=== PATIENT | female | born 1965 | race Caucasian/White ===

== ENCOUNTER 2017-11-06 16:38 | Inpatient (IN) | payer OTHER ==
[2017-11-06 17:44] LABS: Absolute Monocytes 0.5 K/uL (0.1-1.3); Hematocrit 40.1 % (36.0-45.0); MCH 28.4 pg (27.0-35.0); MPV 8.4 fL (7.6-11.3); RBC Red Blood Cell Count 4.76 M/uL (3.86-4.86)
[2017-11-06 17:48] LABS: Absolute Lymphocytes (CBC) 1.8 K/uL (0.7-4.9); Absolute Neutrophil 3.6 K/uL (1.8-8.0); Basophils % 1.2 % (0-1.3); Eosinophils % 1.8 % (0-4.4); Lymphocytes % 29.7 % (15.3-44.8); MCV 84.4 fL (80-100); Monocytes % 8.5 % (3.3-12.3)
[2017-11-06 17:53] LABS: Bicarbonate 27 mEq/L (21-31); Glucose Level 119 mg/dL (65-120); Potassium 3.4 mEq/L (3.6-5.0); Sodium Level 140 mEq/L (135-145)
[2017-11-06 17:54] LABS: BUN Blood Urea Nitrogen 7 mg/dL (6-20)
--- NOTE | 2017-11-06 17:56 | RAD REPORT ---
EXAM DESCRIPTION: CT - Head Brain Wo Cont - 11/06/2017 5:42 pm CLINICAL HISTORY: Left-sided retro-orbital headache, visual field disturbance COMPARISON: None. TECHNIQUE: Axial 5 mm thick images of the head were obtained without IV contrast. All CT scans are performed using dose optimization technique as appropriate and may include automated exposure control or mA/KV adjustment according to patient size. FINDINGS: No intracranial hemorrhage, mass, edema or shift of mid-line structures. No acute cortical based infarction identified. No cortical edema or sulcal effacement. No abnormal extra-axial fluid c ollections. Ventricles are normal. Physiologic calcifications are present. Mastoid air cells and visualized portions of the paranasal sinuses are clear. No acute bony findings. IMPRESSION: No hemorrhage, mass or edema. No acute infarction changes are identifiable. If there are continued, unexplained visual or neurologic deficits, followup MR imaging could be obtai anabelle for more sensitive assessment.
--- NOTE | 2017-11-06 18:49 | EDPHYS ---
Physician Documentation [facility] Name: Jessi Vang Age: 52 yrs Sex: Female : 1965 Arrival Date: 11/06/2017 Time: 16:41 Bed 25 Private MD: ED Physician Rufus Rouse HPI: 11/06 18:41 This 52 yrs old Female presents to ER via Ambulatory with complaints of gs Vision Problem. 18:41 The patient's problem is reported as visual difficulty, scotomata, decreased visual gs field. Onset: The symptoms/episode began/occurred at 13:00. Duration: This was a single incident. Context: occurred at home, occurred while the patient was driving , looking to right and left. The symptoms are alleviated by nothing. The symptoms are aggravated by nothing. Associated signs and symptoms: Pertinent positives: headache, noticed after visual returned to normal, did not start with headache. Severity of symptoms: At their worst the symptoms were moderate in the emergency department the symptoms have resolved except residual headache. The patient has not experienced similar symptoms in the past. 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 - Social history:: Smoking status: Patient/guardian denies using tobacco. ROS: 18:41 All other systems are negative. gs Exam: 18:41 Head/Face: Normocephalic, atraumatic. Eyes: Pupils equal round and reactive to light, gs extra-ocular motions intact. Lids and lashes normal. Conjunctiva and sclera are non-icteric and not injected. Cornea within normal limits. Periorbital areas with no swelling, redness, or edema. ENT: Nares patent. No nasal discharge, no septal abnormalities noted. Tympanic membranes are normal and external auditory canals are clear. Oropharynx with no redness, swelling, or masses, exudates, or evidence of obstruction, uvula midline. Mucous membranes moist. Neck: Trachea midline, no thyromegaly or masses palpated, and no cervical lymphadenopathy. Supple, full range of motion without nuchal rigidity, or vertebral point tenderness. No Meningismus. Chest/axilla: Normal chest wall appearance and motion. Nontender with no deformity. No lesions are appreciated. Cardiovascular: Regular rate and rhythm with a normal S1 and S2. No gallops, murmurs, or rubs. Normal PMI, no JVD. No pulse deficits. Respiratory: Lungs have equal breath sounds bilaterally, clear to auscultation and percussion. No rales, rhonchi or wheezes noted. No increased work of breathing, no retractions or nasal flaring. Abdomen/GI: Soft, non-tender, with normal bowel sounds. No distension or tympany. No guarding or rebound. No evidence of tenderness throughout. Back: No spinal tenderness. No costovertebral tenderness. Full range of motion. Skin: Warm, dry with normal turgor. Normal color with no rashes, no lesions, and no evidence of cellulitis. MS/ Extremity: Pulses equal, no cyanosis. Neurovascular intact. Full, normal range of motion. Neuro: Awake and alert, GCS 15, oriented to person, place, time, and situation. Cranial nerves II-XII grossly intact. Motor strength 5/5 in all extremities. Sensory grossly intact. Cerebellar exam normal. Normal gait. 18:41 Constitutional: The patient appears alert, awake. 18:49 ECG was reviewed by the Attending Physician. Vital Signs: 16:58 BP 171 / 100; Pulse 78; Resp 16; Temp 98.4; Pulse Ox 100% on R/A; Weight 95.25 kg; hb Height 5 ft. 8 in. (172.72 cm); Pain 8/10; 17:30 BP 153 / 84; Pulse 106; Resp 18; Pulse Ox 100% ; tl3 18:21 BP 156 / 85; Pulse 90; Resp 18; Pulse Ox 97% ; tl3 19:07 BP 154 / 80; Pulse 90; Resp 18; Pulse Ox 100% on R/A; tl3 21:48 BP 153 / 87; Pulse 77; Resp 18; Pulse Ox 99% ; tl3 16:58 Body Mass Index 31.93 (95.25 kg, 172.72 cm) NIH Stroke Scale Scores: 18:41 NIHSS Score: 0 gs MDM: 17:19 Patient medically screened. 18:41 Differential diagnosis: CVA, TIA, metabolic disorder, migraine. Data reviewed: vital gs signs, nurses notes. Response to treatment: the patient's symptoms have resolved after treatment, and as a result, I will admit patient. ED course: no tpa symptoms resolved. 11/06 17:13 Order name: Basic Metabolic Panel; Complete Time: 18:10 11/06 17:13 Order name: CBC with Diff; Complete Time: 18:10 11/06 17:13 Order name: PT-INR; Complete Time: 18:10 11/06 17:13 Order name: XRAY Chest (1 view); Complete Time: 21:20 11/06 17:13 Order name: CT Head Brain wo Cont; Complete Time: 21:20 11/06 21:32 Order name: CT [facility] 11/06 17:13 Order name: EKG; Complete Time: 17:13 11/06 17:13 Order name: Cardiac monitoring; Complete Time: 17:35 11/06 17:13 Order name: EKG - Nurse/Tech; Complete Time: 17:39 11/06 18:54 Order name: CONS Physician Consult [facility] 11/06 21:39 Order name: CT [facility] 11/06 17:13 Order name: IV Saline Lock; Complete Time: 17:35 11/06 17:13 Order name: Labs collected and sent; Complete Time: 17:35 11/06 17:13 Order name: O2 Per Protocol; Complete Time: 17:36 11/06 17:13 Order name: O2 Sat Monitoring; Complete Time: 17:36 gs EC:49 Rate is 77 beats/min. Rhythm is regular. MD interval is normal. QRS interval is normal. gs T waves are Normal. No ST changes noted. Clinical impression: Normal ECG. Interpreted by me. Administered Medications: 19:01 Drug: TORadol 15 mg Route: IVP; Site: right antecubital; tl3 21:00 Follow up: Response: No adverse reaction; Pain is decreased tl3 21:00 Follow up: Response: No adverse reaction; Pain is decreased tl3 19:04 Drug: Benadryl 25 mg Route: IVP; Infused Over: 3 mins; Site: right antecubital; tl3 21:00 Follow up: Response: No adverse reaction; Pain is decreased tl3 19:05 Drug: Reglan 5 mg Route: IVP; Infused Over: 5 mins; Site: right antecubital; tl3 21:00 Follow up: Response: No adverse reaction; Pain is decreased tl3 Disposition: 11/06/17 18:48 Hospitalization ordered by Marquez Cardenas for Observation. Preliminary diagnosis are Transient cerebral ischemic attack, unspecified, Essential (primary) hypertension. - Bed requested for Telemetry/MedSurg (observation). - Status is Observation. tl3 - Condition is Stable. - Problem is new. - Symptoms are resolved. UTI on Admission? No NIH Stroke Scale - NIH Stroke Score Date: 11/06/2017 Time: 18:41 Total Score = 0 1a. Level of Consciousness (LOC) - 0(Alert) 1b. Level of Consciousness (LOC) (Year \T\ Age) - 0(Both) 1c. LOC Commands (Open \T\ Closes Eyes/Sole Stainer) - 0(Both) 2. Best Gaze (Lateral Gaze Paresis) - 0(Normal) 3. Visual Field Loss - 0(No visual loss) 4. Facial Palsy - 0(Normal) 5a. Left Arm: Motor (10-second hold) - 0(No drift) 5b. Right Arm: Motor (10-second hold) - 0(No drift) 6a. Left Leg: Motor (5-second hold - always test supine) - 0(No drift) 6b. Right Leg: Motor (5-second hold - always test supine) - 0(No drift) 7. Limb Ataxia (finger/nose \T\ heel/valente - test with eyes open) - 0(Absent) 8. Sensory Loss (pinprick arms/legs/face) - 0(Normal) 9. Best Language: Aphasia (description/naming/reading) - 0(No aphasia) 10. Dysarthria (speech clarity - read or repeat words) - 0(Normal) 11. Extinction and Inattention (visual/tactile/auditory/spatial/personal) - 0(No abnormality) Initials: Signatures: Dispatcher [employer] Maritza Rivera RN RN dw Nieto, Roman, MD MD rn Baxter, Heather, RN RN hb Starr, Gregory, MD MD gs Lowrey, Tammy, RN RN tl3
--- NOTE | 2017-11-06 18:49 | ER ---
Nurse's Notes [facility] Name: Jessi Vang Age: 52 yrs Sex: Female : 1965 Arrival Date: 11/06/2017 Time: 16:41 Bed 25 Private MD: Diagnosis: Transient cerebral ischemic attack, unspecified;Essential (primary) hypertension Presentation: 11/06 16:53 Presenting complaint: Patient states: Turned to put seat belt on and entire field of hb vision went white, which lasted for approx 5 minutes. Now c/o headache behind left eye, photosensitivity, and vision is "hazy." Distant migraine hx. Transition of care: patient was not received from another setting of care. Onset of symptoms was November 06, 2017 at 13:30. Initial Sepsis Screen: Does the patient meet any 2 criteria? No. Patient's initial sepsis screen is negative. Does the patient have a suspected source of infection? No. Patient's initial sepsis screen is negative. Care prior to arrival: None. 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 - Social history:: Smoking status: Patient/guardian denies using tobacco. Screenin:30 Abuse screen: Denies threats or abuse. Nutritional screening: No deficits noted. tl3 Tuberculosis screening: No symptoms or risk factors identified. Fall Risk None identified. Assessment: 17:30 General: Appears uncomfortable, well groomed, well developed, well nourished, Behavior tl3 is calm, cooperative, appropriate for age. Pain: Complains of pain in headache. Neuro: Level of Consciousness is awake, alert, obeys commands, Oriented to person, place, time, situation, Appropriate for age. Cardiovascular: Heart tones S1 S2 present. Respiratory: Airway is patent Trachea midline Respiratory effort is even, unlabored, Respiratory pattern is regular, symmetrical, Breath sounds are clear bilaterally. GI: No signs and/or symptoms were reported involving the gastrointestinal system. : No signs and/or symptoms were reported regarding the genitourinary system. EENT: No signs and/or symptoms were reported regarding the EENT system. EENT: Reports photophobia in outer aspect of conjuctiva of right eye, iris of right eye, inner aspect of conjuctiva of right eye, outer aspect of conjuctiva of left eye, iris of left eye and inner aspect of conjunctiva of left eye was going to put on seat belt and turned around and had loss of vision, everything was white. Derm: No signs and/or symptoms reported regarding the dermatologic system. Musculoskeletal: No signs and/or symptoms reported regarding the musculoskeletal system. 18:21 Reassessment: Patient appears in no apparent distress at this time. No changes from tl3 previously documented assessment. Patient and/or family updated on plan of care and expected duration. Pain level reassessed. Patient is alert, oriented x 3, equal unlabored respirations, skin warm/dry/pink. pt reports vision is better, resting quietly, lights dimmed. 19:07 Reassessment: Patient appears in no apparent distress at this time. No changes from tl3 previously documented assessment. Patient and/or family updated on plan of care and expected duration. Pain level reassessed. Patient is alert, oriented x 3, equal unlabored respirations, skin warm/dry/pink. pt notified of need for admit, ambulated to the restroom with asssistance. 20:49 Reassessment: pt in CT scan. bb 21:48 Reassessment: Patient appears in no apparent distress at this time. No changes from tl3 previously documented assessment. Patient and/or family updated on plan of care and expected duration. Pain level reassessed. Patient is alert, oriented x 3, equal unlabored respirations, skin warm/dry/pink. pt awaiting transfer upstairs, Nurse to call back for report DAWSON. Vital Signs: 16:58 BP 171 / 100; Pulse 78; Resp 16; Temp 98.4; Pulse Ox 100% on R/A; Weight 95.25 kg; hb Height 5 ft. 8 in. (172.72 cm); Pain 8/10; 17:30 BP 153 / 84; Pulse 106; Resp 18; Pulse Ox 100% ; tl3 18:21 BP 156 / 85; Pulse 90; Resp 18; Pulse Ox 97% ; tl3 19:07 BP 154 / 80; Pulse 90; Resp 18; Pulse Ox 100% on R/A; tl3 21:48 BP 153 / 87; Pulse 77; Resp 18; Pulse Ox 99% ; tl3 16:58 Body Mass Index 31.93 (95.25 kg, 172.72 cm) hb NIH Stroke Scale Scores: 18:41 NIHSS Score: 0 ED Course: 16:41 Patient arrived in ED. mr 16:58 Triage completed. hb 16:59 Arm band placed on left wrist. hb 17:04 Loretta Feng, RN is Primary Nurse. tl3 17:12 Rufus Rouse MD is Attending Physician. gs 17:[address] via stretcher. tl3 17:30 Patient has correct armband on for positive identification. Bed in low position. Call tl3 light in reach. Side rails up X 1. Pulse ox on. NIBP on. 17:30 No provider procedures requiring assistance completed. Inserted saline lock: 18 gauge tl3 in right antecubital area, using aseptic technique. Blood collected. 17:42 CT Head Brain wo Cont In Process Unspecified. EDMS 17:42 CT completed. Patient tolerated procedure well. Patient moved back from CT. bq 17:53 X-ray completed. Portable x-ray completed in exam room. Patient tolerated procedure la2 well. 17:54 XRAY Chest (1 view) In Process Unspecified. EDMS 18:21 EKG done, by ED staff, reviewed by Rufus Rouse MD. tl3 18:48 Marquez Cardenas MD is Hospitalizing Provider. gs 21:17 CT completed. Patient moved to CT via wheelchair. Patient moved back from CT. cw1 22:00 Patient admitted, IV remains in place. tl3 Administered Medications: 19:01 Drug: TORadol 15 mg Route: IVP; Site: right antecubital; tl3 21:00 Follow up: Response: No adverse reaction; Pain is decreased tl3 21:00 Follow up: Response: No adverse reaction; Pain is decreased tl3 19:04 Drug: Benadryl 25 mg Route: IVP; Infused Over: 3 mins; Site: right antecubital; tl3 21:00 Follow up: Response: No adverse reaction; Pain is decreased tl3 19:05 Drug: Reglan 5 mg Route: IVP; Infused Over: 5 mins; Site: right antecubital; tl3 21:00 Follow up: Response: No adverse reaction; Pain is decreased tl3 Outcome: 18:48 Decision to Hospitalize by Provider. gs 21:59 Admitted to Tele accompanied by george, with chart, Report called to neyda LUEVANO tl3 21:59 Condition: stable 21:59 Instructed on the need for admit. 22:20 Patient left the ED. tl3 NIH Stroke Scale - NIH Stroke Score Date: 11/06/2017 Time: 18:41 Total Score = 0 1a. Level of Consciousness (LOC) - 0(Alert) 1b. Level of Consciousness (LOC) (Year \\T\\ Age) - 0(Both) 1c. LOC Commands (Open \\T\\ Closes Eyes/Cad Designer Drafter) - 0(Both) 2. Best Gaze (Lateral Gaze Paresis) - 0(Normal) 3. Visual Field Loss - 0(No visual loss) 4. Facial Palsy - 0(Normal) 5a. Left Arm: Motor (10-second hold) - 0(No drift) 5b. Right Arm: Motor (10-second hold) - 0(No drift) 6a. Left Leg: Motor (5-second hold - always test supine) - 0(No drift) 6b. Right Leg: Motor (5-second hold - always test supine) - 0(No drift) 7. Limb Ataxia (finger/nose \\T\\ heel/valente - test with eyes open) - 0(Absent) 8. Sensory Loss (pinprick arms/legs/face) - 0(Normal) 9. Best Language: Aphasia (description/naming/reading) - 0(No aphasia) 10. Dysarthria (speech clarity - read or repeat words) - 0(Normal) 11. Extinction and Inattention (visual/tactile/auditory/spatial/personal) - 0(No abnormality) Initials: Signatures: Dispatcher [employer] Birgit White LacijennyferNicol Brenda, RN RN bb Woodley, Crystal cw1 Gale Santana RN RN hb Starr, Gregory, MD MD gs Ardoin, Leslie la2 Loretta Feng RN RN tl3
[2017-11-06] MEDS ORDERED: DIPHENHYDRAMINE 50 MG/ML VIAL ONE (18:50)
[2017-11-06] MEDS ORDERED: METOCLOPRAMIDE 10 MG/2mL INJ ONE (18:50)
[2017-11-06] MEDS ORDERED: KETOROLAC 30 MG/ML INJ ONE (18:51)
[2017-11-06] MEDS ORDERED: ONDANSETRON 4 MG/2 ML VIAL IV PRN (19:20)
[2017-11-06] MEDS: NA CHLORIDE 0.9% 1,000 ML IV SCH ×2 (20:00→23:14)
--- NOTE | 2017-11-06 20:04 | RAD REPORT ---
EXAM DESCRIPTION: RAD - Chest Single View - 11/06/2017 5:54 pm CLINICAL HISTORY: Headache, shortness of breath COMPARISON: None. TECHNIQUE: AP portable chest image was obtained 1749 hours . FINDINGS: Lungs are clear. Heart and vasculature are normal. No measurable pleural effusion and no p neumothorax. No gross bony abnormality seen. No acute aortic findings suspected. IMPRESSION: No acute cardiopulmonary process.
--- NOTE | 2017-11-06 21:31 | RAD REPORT ---
EXAM DESCRIPTION: CT - Neck Angio - 11/06/2017 9:18 pm CLINICAL HISTORY: Headache, acute onset visual difficulty with head turning, possible vertebral diss ection COMPARISON: CT head same date TECHNIQUE: During dynamic enhancement using nonionic IV contrast, axial 2 millimeter thick images we re obtained. Thin section axial, sagittal and coronal reformatted images were generated and reviewed. FINDINGS: CT angio neck findings are incorporated into the CT angio head report. IMPRESSION: Please see separate CT angio head report.
--- NOTE | 2017-11-06 21:39 | RAD REPORT ---
EXAM DESCRIPTION: CT - Head angio - 11/06/2017 9:19 pm CLINICAL HISTORY: Visual difficulty, temporary loss of vision, acute onset with head turn COMPARISON: CT head same date TECHNIQUE: During dynamic enhancement using nonionic IV contrast, axial 2 millimeter thick images we re obtained. Thin section sagittal and coronal reconstruction images generated and reviewed. FINDINGS: Both vertebral artery origins are well visualized. Left vertebral artery is slightly domin ant. Both vessels are fully opacified from origin until termination at the basilar artery. No dissect ion or focal vertebral artery abnormality. Basilar artery is unremarkable. Bilateral common carotid, internal carotid and external carotid arteries show normal opacification. N o dissection, stenosis or acute vascular finding. Both internal carotid artery showing mild aberrant medial course. This tortuosity is a normal variant. The no hematoma, mass or acute finding in the neck soft tissues. Significant C5-6 disc space narrowin g is present with bilateral bony foraminal encroachment. Canal is borderline stenotic. Intracranial portions of the internal carotid arteries are unremarkable. No basilar artery abnormalit y. At the [place] there is no aneurysm or suspicious vascular finding. The anterior, middle and posterior cerebral artery distribution show no suspicious findings. Major venous sinuses are ramirez nt. IMPRESSION: No vertebral artery dissection or acute vertebral artery abnormality seen. CT angiography of the intracranial and neck vasculature shows no dissection, stenosis, aneurysm or ot her acute finding. Patient has significant C5-6 disc and endplate degenerative change with bilateral bony foraminal encr oachment and borderline spinal stenosis.
[2017-11-07] MEDS: ATORVASTATIN 20 MG TAB PO SCH ×2 (00:24→20:19)
[2017-11-07] MEDS: ASPIRIN EC 81 MG TAB PO SCH ×2 (00:25→09:48)
[2017-11-07] MEDS: KCL 20 MEQ/100 mL IVPB 20 MEQ/100 ML BAG IV SCH ×2 (00:26→03:29)
[2017-11-07] MEDS ORDERED: LORazepam 2 MG/ML VIAL IV PRN ×2 (03:05→19:38)
[2017-11-07] MEDS ORDERED: Morphine 2 MG/2 ML SYR IV PRN (03:05)
[2017-11-07 05:46] LABS: Absolute Lymphocytes (CBC) 2.2 K/uL (0.7-4.9); Absolute Monocytes 0.6 K/uL (0.1-1.3); Absolute Neutrophil 3.3 K/uL (1.8-8.0); Basophils % 2.2 % (0-1.3); Eosinophils % 2.4 % (0-4.4); Hematocrit 41.1 % (36.0-45.0); Lymphocytes % 34.5 % (15.3-44.8); MCH 28.2 pg (27.0-35.0); MCV 85.8 fL (80-100); MPV 8.4 fL (7.6-11.3); RBC Red Blood Cell Count 4.79 M/uL (3.86-4.86)
[2017-11-07 06:14] LABS: ALT/SGPT 24 IU/L (10-60); AST/SGOT 24 IU/L (10-42); Albumin 3.8 g/dL (3.2-5.5); Alkaline Phosphatase 88 IU/L (42-121); BUN Blood Urea Nitrogen 6 mg/dL (6-20); Bicarbonate 26 mEq/L (21-31); Bilirubin Total 1.1 mg/dL (0.3-1.2); Glucose Level 102 mg/dL (65-120); HDL Cholesterol 54 mg/dL (29-89); LDL Cholesterol, Calculated 133 (<130); Magnesium 2.1 mg/dL (1.8-2.5); Phosphorus 2.9 mg/dL (2.5-4.3); Potassium 3.9 mEq/L (3.6-5.0); Protein, Total 6.5 g/dL (6.0-8.3); Sodium Level 142 mEq/L (135-145)
--- NOTE | 2017-11-07 06:28 | P.HP ---
Certification for Inpatient Patient admitted to: Observation With expected LOS: <2 Midnights Patient will require the following post-hospital care: None Practitioner: I am a practitioner with admitting privileges, knowledge of patient current condition, hospital course, and medical plan of care. Services: Services provided to patient in accordance with Admission requirements found in Title 42 Section 412.3 of the Code of Federal Regulations Patient History Date of Service: 11/06/17 Reason for admission: Headache/visual deficits History of Present Illness: Patient is a 52-year-old female came to the hospital with a headache. The headache started earlier that day. She has had headaches since she was a teenager but they have not recurred since this admission. She states she actually hit her head a couple a days ago. She had a really think much of his but she was going to put her Cepacol on and when she turned everything seemed to go a white. This was mainly on the left side of her vision. Everything slowly came back. Her vision return back to baseline except for the headache. She had a CT of the head performed which revealed possible stroke in the left posterior cerebral artery circulation. She was recommended that patient have a CT angiogram but this was negative for any acute abnormality. Patient be admitted to the hospital for MRI and echocardiogram. I will also check an ESR as patient's headache and visual deficits have me concern for temporal arteritis although her symptoms show not have improved if this was truly temporal arteritis. I think this is unlikely but as this is still in the differential will go ahead and do further testing. Allergies No Known Allergies Allergy (Unverified 11/06/17 19:08) Home Medications: Cyanocobalamin (Vitamin B-12) [Vitamin B-12] 1,000 mcg PO DAILY 11/07/17 L.acidoph,Paracasei, B.lactis [Probiotic] 1 each PO DAILY 11/07/17 - Past Medical/Surgical History Diabetic: No -: Headache -: ruptured ovarian cyst -: CS x 2 -: appendectomy - Family History Father Medical History: Cancer Mother Notes: brain tumor - Social History Smoking Status: Never smoker Alcohol use: Yes CD- Drugs: No Caffeine use: Yes Place of Residence: Home Review of Systems 10-point ROS is otherwise unremarkable Physical Examination - Vital Signs Temperature: 97.4 F Blood Pressure: 166/87 Pulse: 79 Respirations: 18 Pulse Ox (%): 96 - Physical Exam General: Alert, In no apparent distress, Oriented x3 HEENT: Atraumatic, PERRLA, Mucous membr. moist/pink, EOMI, Sclerae nonicteric Neck: Supple, 2+ carotid pulse no bruit, No LAD, Without JVD or thyroid abnormality Respiratory: Clear to auscultation bilaterally, Normal air movement Cardiovascular: Regular rate/rhythm, Normal S1 S2, No murmurs Gastrointestinal: Normal bowel sounds, No tenderness Musculoskeletal: No tenderness Integumentary: No rashes Neurological: Normal gait, Normal speech, Normal strength at 5/5 x4 extr, Normal tone, Normal affect Lymphatics: No axilla or inguinal lymphadenopathy - Studies Laboratory Data (last 24 hrs) 11/06/17 17:30: PT 11.8, INR 1.00 11/06/17 17:30: WBC 6.2, Hgb 13.5, Hct 40.1, Plt Count 266 11/06/17 17:30: Sodium 140, Potassium 3.4 L, BUN 7, Creatinine 0.59, Glucose 119 Assessment & Plan - Problems (Diagnosis) (1) Headache Current Visit: Yes Status: Acute (2) Cerebrovascular accident (CVA) involving posterior circulation Current Visit: Yes Status: Acute (3) Temporal arteritis Current Visit: Yes Status: Acute - Plan Plan: 1. MRI stroke protocol which will also early childhood educator aide carotid artery and vertebral artery 2. Echocardiogram 3. Anti-platelet therapy and statin therapy 4. Lipid profile 5. DVT prophylaxis 6. PT eval if any weakness 7. Neurochecks Q 4 and Neurology consultation 8. GI and DVT prophylaxis Discharge Plan: Home Plan to discharge in: Greater than 2 days - Advance Directives Does patient have a Living Will: Yes Does patient have a Durable POA for Healthcare: Yes - Code Status/Comfort Care Code Status Assessed: Yes Code Status: Full Code Critical Care: No Time Spent Managing PTS Care (In Minutes): 50
--- NOTE | 2017-11-07 07:16 | EKG ---
Test Date: 2017-11-06 Test Time: 18:13:00 Healthcare Management Consultant: TL MEASUREMENT RESULTS: Intervals: Rate: 77 MN: 152 QRSD: 84 QT: 370 QTc: 418 [place]: P: 53 MN: 152 QRS: 31 T: 39 INTERPRETIVE STATEMENTS: Normal sinus rhythm Normal ECG No previous ECG available for comparison Electronically Signed On 11-07-17 07:15:27 CDT by Nahum Storm
[2017-11-07] MEDS: ENOXAPARIN 30 MG/0.3 ML SQ SCH (09:47)
[2017-11-07] MEDS: LACTOBACILLUS/ACIDOPHILUS TAB PO SCH (09:48)
[2017-11-07] MEDS: CYANOCOBALAMIN 1,000 MCG TAB PO SCH (09:48)
[2017-11-07] MEDS: NA CHLORIDE 0.9% 1,000 ML IV SCH (09:49)
[2017-11-07] MEDS: ACETAMINOPHEN 500 MG TAB PO PRN ×2 (12:17→20:15)
--- NOTE | 2017-11-07 12:50 | ECHO ---
HEIGHT: 5 ft 7.5 in WEIGHT: 217 lb 12.8 oz DATE OF STUDY: 11/07/[address]: Marquez Cardenas MD 2-DIMENSIONAL: YES M.MODE: YES DOPPLER: YES COLOR FLOW: YES TDS: PORTABLE: DEFINITY: BUBBLE STUDY: DIAGNOSIS: STROKE CARDIAC HISTORY: CATHERIZATION: NO SURGERY: NO PROSTHETIC VALVE: NO PACEMAKER: NO MEASUREMENTS (cm) DIASTOLIC (NORMALS) SYSTOLIC (NORMALS) IVSd 0.8 (0.6-1.2) LA Diam 3.3 (1.9-4.0) LVEF 65% LVIDd 4.1 (3.5-5.7) LVIDs 2.6 (2.0-3.5) %FS 35% LVPWd 1.0 (0.6-1.2) Ao Diam 2.6 (2.0-3.7) 2 DIMENSIONAL ASSESSMENT: RIGHT ATRIUM: NORMAL LEFT ATRIUM: NORMAL RIGHT VENTRICLE: NORMAL LEFT VENTRICLE: NORMAL TRICUSPID VALVE: NORMAL MITRAL VALVE: NORMAL PULMONIC VALVE: NORMAL AORTIC VALVE: NORMAL PERICARDIAL EFFUSION: NONE AORTIC ROOT: NORMAL LEFT VENTRICULAR WALL MOTION: NORMAL DOPPLER/COLOR FLOW: NORMAL COMMENTS: NORMAL 2-DIMENSIONAL ECHOCARDIOGRAM WITH DOPPLER. TECHNOLOGIST: TYE SANCHEZ
--- NOTE | 2017-11-07 15:45 | RAD REPORT ---
EXAM DESCRIPTION: MRI - Stroke Protocol - 11/07/2017 2:31 pm CLINICAL HISTORY: Acute onset visual changes, stroke-like symptoms that have resolved, headache COMPARISON: None. TECHNIQUE: Sagittal T1- weighted images were obtained along with PD/heavily T2- weighted and T2-FLAI R images. Axial DWI and ADC mapping sequences were also obtained. Coronal heavily T2- weighted images were obtained. MRA head imaging performed with source images and 3D reconstruction images reviewed. MRA neck imaging was performed with source and 3D reconstruction imaging reviewed. Post contrast T1 i maging was performed. A 20 ml GD dosage was utilized. FINDINGS: Diffusion-weighted imaging shows multiple foci of abnormal signal. Small focal areas of ab normal signal are present in the posteromedial left temporal lobe, medial right occipital lobe, poste rior inferior left occipital lobe and in the each cerebellar hemisphere. Largest area is in the poste rior left cerebellum measuring 2.1 x 0.8 cm. These have corresponding areas of decreased signal on AD C mapping. Hypointense T1 signal is present for the largest left cerebellum lesion with hyperintense T2/IR signal for the cerebellum lesion. T2 stir imaging shows scattered, punctate areas of T2 signal abnormality throughout the cerebral hemispheric white matter. These broader white matter signal abnor malities do not have acute components on the diffusion-weighted imaging. There is no edema or shift of midline structures. No extra-axial fluid collections. Tariq-matter/whit e matter junction is preserved. Signal voids are seen as a normal finding in the major intracranial v essels. Postcontrast imaging shows no abnormal brain parenchymal enhancement and no dural enhancement . Mastoid air cells and paranasal sinuses are clear. No globe or orbit abnormality. MRA Head imaging shows no aneurysm or vascular malformation. Intracranial portion of each internal ca rotid artery as well as the anterior and middle cerebral artery distribution show no stenosis, occlus ion or atherosclerotic change. Basilar artery is unremarkable. No right posterior cerebral abnormalit y. In the left posterior cerebral artery P2 segment there is a short segment 50% stenosis. Aortic arch is 3 vessel. No great vessel origins stenosis. Vertebral artery origins are more difficul t to visualize. Left vertebral artery is slightly dominant as a normal variant. From origin to basila r artery dissection, stenosis or suspicious vertebral artery finding is not identified. No common ca rotid or internal carotid diffuse or focal abnormality. The nonhemorrhagic acute infarction pattern is all posterior circulation. There is no dissection in t he vertebral or basilar arteries. From the detailed mechanism triggering the onset of symptoms, patie nt may have had vertebral artery vasospasm with subsequent thromboembolic event. IMPRESSION: Multiple acute nonhemorrhagic infarctions are present in the both occipital lobes, both cerebellar hemispheres and posteromedial left temporal lobe, all in the posterior circulation. The MRA imaging and prior day CT angio imaging show no dissection, stenosis or significant vascular p rocess. The short-segment narrowing in the left posterior cerebral artery could be remnant vasospasm or focal atherosclerotic stenosis. From the described mechanism triggering symptoms, a transient vertebral artery vasospasm may have occ urred with subsequent thromboembolic event. Multiple small chronic areas of T2 signal abnormality scattered in the cerebral hemispheres. These ar e nonspecific and could be chronic ischemic change or the sequela of migraine headaches, vasculitis o r unlikely demyelinization.
[2017-11-07] MEDS ORDERED: HYDRALAZINE HCL 20 MG/ML VIAL IV PRN ×2 (19:26)
--- NOTE | 2017-11-07 19:38 | P.PN ---
Subjective Date of Service: 11/07/17 Chief Complaint: Headache/visual deficits Subjective: Improving (Patient's vision improving. No other deficits noted.) Physical Examination - Vital Signs Temperature: 98.0 F Blood Pressure: 179/91 Pulse: 89 Respirations: 18 Pulse Ox (%): 96 - Physical Exam General: Alert, In no apparent distress, Oriented x3, Cooperative HEENT: Atraumatic Neck: Supple Respiratory: Clear to auscultation bilaterally, Normal air movement Cardiovascular: Normal pulses, Regular rate/rhythm Gastrointestinal: Normal bowel sounds, Soft and benign, No tenderness, No masses , No rebound, No guarding Musculoskeletal: No erythema, No tenderness, No warmth Neurological: Normal speech, Normal strength at 5/5 x4 extr, Normal tone, Abnormal affect (Mild anxiety noted) - Studies Medications List Reviewed: Yes Assessment & Plan - Problems (Diagnosis) (1) Hypertension Current Visit: Yes Status: Acute Plan: Patient with elevated blood pressure. Will provide hydralazine as needed. Will hold off on getting blood pressure well controlled at this time due to CVA. Patient may require ERIN-inhibitor or calcium channel samantha at discharge. Will try to maintain blood pressures around 150-160. Will provide hydralazine if blood pressure greater than 180. Possible discharge tomorrow if improved. Qualifiers: Hypertension type: essential hypertension Qualified Code(s): I10 - Essential (primary) hypertension (2) Hyperlipidemia Current Visit: Yes Status: Acute Plan: Will continue with statin medication. Qualifiers: Hyperlipidemia type: unspecified Qualified Code(s): E78.5 - Hyperlipidemia , unspecified (3) Anxiety Current Visit: Yes Status: Acute Plan: Will provide medication as needed. (4) Cerebrovascular accident (CVA) involving posterior circulation Onset Date: 11/07/17 Current Visit: Yes Status: Acute Plan: MRI shows multiple acute nonhemorrhagic infarcts in both occipital lobes, both cerebellar hemispheres and posteromedial left temporal lobe. All in the posterior circulation. This discuss in detail with radiology and neurology. Patient currently on Plavix. Will continue with his statin medication. Patient on DVT prophylaxis. Will provide medication for blood pressure if blood pressure elevated greater than 180 systolic. Patient will likely need ERIN -inhibitor or calcium channel samantha at discharge. Possible discharge tomorrow if improved. (5) Headache Onset Date: 11/07/17 Current Visit: Yes Status: Acute Plan: Continue with above plan of care. Discharge Plan: Home Plan to discharge in: 24 Hours - Code Status/Comfort Care Code Status Assessed: Yes Time Spent Managing Pts Care (In Minutes): 55
[2017-11-07] MEDS: CLOPIDOGREL 75 MG TABLET PO SCH (20:15)
--- NOTE | 2017-11-07 21:40 | CON ---
Reason For Consultation: Headache, visual disturbance, stroke. History Of Present Illness: A 52-year-old lady with a remote history of questionable hypertension, alexa bran followed by Dr. Lopez who is her primary care physician. She was in her usual state of health until yesterday when about 1 in the afternoon, she experienced abrupt onset of inability to see. She says everything just suddenly became white, lasted 5 to 10 minutes, and then essentially resolved. She did not have dysarthria. She was able to walk. She was able to speak. She did not have unilate ral numbness or weakness. EMS was summoned. She was brought to the emergency department where kourtney adrian she complained of headache and visual disturbance. In the emergency department at 1641 hours, C T scan demonstrated a questionable lesion in the occipital lobe and the cerebellum. CTA; no dissecti on or stenosis in the posterior circulation. NIH was 0. Given low NIH and rapidly improving symptom s, decision was made not to administer tPA. Sedimentation rate normal. CRP normal. Given the heada eleno, she is being admitted. Brain MRI and MRA confirm multiple small infarcts in the posterior circu lation, bilateral occipital lobes, bilateral cerebellar, and medial left temporal. They are quite sm all, but present, and the largest in the cerebellum on the left 2.1 x 0.8 cm. Consultation was reque toya. Past Medical History: As alluded to. Medications: Currently aspirin, Lipitor, Plavix, and Lovenox. Allergies: NONE. 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 Does not smoke. Normally independent with activities of [facility]. Family History: The patient's mother of a brain tumor. Review of Systems: General: General good health. Eyes: Visual disturbance is noted. Ears, Nose, Throat: Negative. Cardiovascular: Hypertension. Physical Examination: Vital Signs: Of note, her blood pressure was quite elevated at 171/100 on arrival and has remained e levated here at 185/94 when last checked. HEENT/NEUROLOGIC: Pupils reactive. Ocular motion full. [place] full. Facial strength and sensation normal. Tongue protrudes evenly. Soft palate elevates symmetrically bilaterally. Extremity streng th is full. Sensation is intact. No cortical extinction. Reflexes are 1/4 and symmetric. Toes are downgoing. Cerebellar examination demonstrates no ataxia, even knowing that there are lesions in th e cerebellum. Gait is normal. Impression: Multiple acute cerebral infarctions, possibly posterior reversible vasoconstriction synd zeferino. Stroke scale is 0 currently. The patient is in good clinical condition, although somewhat dis tressed when diagnosis was reviewed with her. Plan: I would recommend observing the patient at least 1 more night. Sedimentation rate was normal. We will check a B12 and a thyroid. Continue intensive statin therapy. We will downgrade anti-plat elet agent just to Plavix, and she will need to be started on antihypertensive while here with a goal of at least 160 systolic. PT evaluation. No need for inpatient rehab evaluation. The patient has a stroke scale of 0. Thank you for the consult. MITZY Voice ID: [id number] Report ID: [id number]
[2017-11-08] MEDS: ACETAMINOPHEN 500 MG TAB PO PRN (05:57)
[2017-11-08 06:24] LABS: Absolute Lymphocytes (CBC) 2.3 K/uL (0.7-4.9); Absolute Monocytes 0.6 K/uL (0.1-1.3); Absolute Neutrophil 2.7 K/uL (1.8-8.0); Basophils % 1.9 % (0-1.3); Eosinophils % 3.3 % (0-4.4); Hematocrit 41.3 % (36.0-45.0); Lymphocytes % 39.5 % (15.3-44.8); MCH 28.6 pg (27.0-35.0); MCV 84.7 fL (80-100); MPV 8.2 fL (7.6-11.3); Monocytes % 10.7 % (3.3-12.3); RBC Red Blood Cell Count 4.87 M/uL (3.86-4.86)
[2017-11-08 06:54] LABS: BUN Blood Urea Nitrogen 8 mg/dL (6-20); Bicarbonate 24 mEq/L (21-31); Glucose Level 95 mg/dL (65-120); Sodium Level 139 mEq/L (135-145); Thyroid Stimulating Hormone 1.75 uIU/mL (0.34-5.60)
[2017-11-08] MEDS: ENOXAPARIN 30 MG/0.3 ML SQ SCH (09:26)
[2017-11-08] MEDS: LACTOBACILLUS/ACIDOPHILUS TAB PO SCH (09:26)
[2017-11-08] MEDS: CYANOCOBALAMIN 1,000 MCG TAB PO SCH (09:26)
[2017-11-08] MEDS: CLOPIDOGREL 75 MG TABLET PO SCH (09:27)
--- NOTE | 2017-11-08 13:45 | P.DS ---
Admission Date: 11/07/17 Discharge Date: 11/08/17 Disposition: ROUTINE DISCHARGE Discharge Condition: GOOD Reason for Admission: Headache/visual deficits Consultations: Dr Annmarie Kilpatrick Brief History of Present Illness: 52-year-old lady with a remote history of questionable hypertension, being followed by Dr. Lopez who is her primary care physician. She was in her usual state of health until yesterday when about 1 in the afternoon, she experienced abrupt onset of inability to see. She says everything just suddenly became white, lasted 5 to 10 minutes, and then essentially resolved. She did not have dysarthria. She was able to walk. She was able to speak. She did not have unilateral numbness or weakness. EMS was summoned. She was brought to the emergency department where primarily she complained of headache and visual disturbance. In the emergency department at 1641 hours, CT scan demonstrated a questionable lesion in the occipital lobe and the cerebellum. CTA; no dissection or stenosis in the posterior circulation. NIH was 0. Given low NIH and rapidly improving symptoms, decision was made not to administer tPA. Sedimentation rate normal. CRP normal. Given the headache, she is being admitted. Hospital Course: Brain MRI and MRA confirm multiple small infarcts in the posterior circulation , bilateral occipital lobes, bilateral cerebellar, and medial left temporal. They are quite small, but present, and the largest in the cerebellum on the left 2.1 x 0.8 cm. Consultation was requested for neurology.She was started on Bp medications with systolic BP goal of not more than 160.She was also started on plavix and statin.She was evaluated b speech/PT/OT. no rehab needs at this time.She remained stable and was discharged home to follow up with her PCP Vital Signs/Physical Exam: Temp Pulse Resp BP Pulse Ox 98.4 F 92 H 16 150/92 H 98 11/08/17 12:00 11/08/17 12:00 11/08/17 12:00 11/08/17 12:11/08/17 12:00 General: Alert, In no apparent distress, Oriented x3 HEENT: Atraumatic, Normocephalic, PERRLA, EOMI Neck: Supple, JVD not distended, No Thyromegaly, No LAD Respiratory: Clear to auscultation bilaterally, Normal air movement Cardiovascular: No edema, Normal pulses, Regular rate/rhythm, Normal S1 S2, No gallops, No rubs, No murmurs Gastrointestinal: Normal bowel sounds, Soft and benign, Non-distended, W/out hepatosplenomegaly Musculoskeletal: No clubbing, No swelling, No contractures, No erythema, No tenderness, No warmth Neurological: Normal gait, Normal speech, Normal strength at 5/5 x4 extr, Normal tone, Sensation intact, Cranial nerves 3-12 intact Laboratory Data at Discharge: WBC 5.9 K/uL (4.3-10.9) 11/08/17 05:41 Hgb 13.9 g/dL (12.0-15.0) 11/08/17 05:41 Hct 41.3 % (36.0-45.0) 11/08/17 05:41 Plt Count 265 K/uL (152-406) 11/08/17 05:41 PT 11.8 SECONDS (9.5-12.5) 11/06/17 17:30 INR 1.00 11/06/17 17:30 Sodium 139 mEq/L (135-145) 11/08/17 05:41 Potassium 4.0 mEq/L (3.6-5.0) 11/08/17 05:41 BUN 8 mg/dL (6-20) 11/08/17 05:41 Creatinine 0.67 mg/dL (0.44-1.00) 11/08/17 05:41 Glucose 95 mg/dL (65-120) 11/08/17 05:41 Phosphorus 2.9 mg/dL (2.5-4.3) 11/07/17 05:09 Magnesium 2.1 mg/dL (1.8-2.5) 11/07/17 05:09 Total Bilirubin 1.1 mg/dL (0.3-1.2) 11/07/17 05:09 AST 24 IU/L (10-42) 11/07/17 05:09 ALT 24 IU/L (10-60) 11/07/17 05:09 Alkaline Phosphatase 88 IU/L (42-121) 11/07/17 05:09 Triglycerides 92 mg/dL (35-160) 11/07/17 05:09 Cholesterol 205 mg/dL (<200) H 11/07/17 05:09 HDL Cholesterol 54 mg/dL (29-89) 11/07/17 05:09 Cholesterol/HDL Ratio 3.80 11/07/17 05:09 Imagings Data: Brain MRI and MRA confirm multiple small infarcts in the posterior circulation , bilateral occipital lobes, bilateral cerebellar, and medial left temporal. They are quite small, but present, and the largest in the cerebellum on the left 2.1 x 0.8 cm. Home Medications: Cyanocobalamin (Vitamin B-12) [Vitamin B-12] 1,000 mcg PO DAILY 11/07/17 L.acidoph,Barbara, B.lactis [Probiotic] 1 each PO DAILY 11/07/17 Amlodipine [Norvasc*] 10 mg PO DAILY 60 Days #60 tab MDD 1 11/08/17 Atorvastatin Calcium [Lipitor*] 80 mg PO BEDTIME 60 Days #60 tab 11/08/17 Clopidogrel Bisulfate [Plavix*] 75 mg PO DAILY 60 Days #60 tablet 11/08/17 Cyanocobalamin [Vitamin B-12*] 1,000 mcg PO DAILY tab 11/08/17 New Medications: Amlodipine [Norvasc*] 10 mg PO DAILY 60 Days #60 tab MDD 1 Atorvastatin Calcium [Lipitor*] 80 mg PO BEDTIME 60 Days #60 tab Clopidogrel Bisulfate [Plavix*] 75 mg PO DAILY 60 Days #60 tablet Patient Discharge Instructions: follow up with PCP in one week Diet: Low sodium Activity: Ad nella
[2017-11-09] MEDS ORDERED: AMLODIPINE 10 MG TAB PO SCH (09:00)
== END 2017-11-08 15:32 | disposition home or self-care (01) | DRG 66 ==
LOC: ER 16:38 → ERHOLD 18:50 → 4TH 19:23 → OBSVTOIN 11-07 17:50
PROVIDERS: ADMIT Hospitalist; ATTEND Hospitalist
DX: I63.9 Cerebral infarction, unspecified (principal); E78.5 Hyperlipidemia, unspecified; F41.9 Anxiety disorder, unspecified; I10 Essential (primary) hypertension; H53.9 Unspecified visual disturbance
CPT/HCPCS: 36415; 70450; 70496; 70498; 70544; 70549; 70553; 71045; 80048; 80053; 80061; 82607; 83735; 84100; 84132; 84443; 85025; 85610; 85652; 86038; 86140; 93005; 93306; 96374; 96375; 97163; 99285; A9577; G0378; J1650; J2270; J2765; J7030; Q9967